=== PATIENT | male | born 1965 ===

== ENCOUNTER → 2025-03-06 16:00 | Outpatient (BNV) | payer MEDICARE, MEDICAID, SELFPAY | PROVIDERS: Visit Provider Internal Medicine | DX: G47.33 Obstructive sleep apnea (adult) (pediatric) (principal) | CPT/HCPCS: 95806 ==

== ENCOUNTER → 2025-03-06 19:59 | Outpatient (REF) | payer MEDICARE, MEDICAID, SELFPAY ==
--- OUTSIDE RECORDS SUMMARY | 2025-03-07 09:36 | XMS_ITS | Encounter Summary ---
Author Organization [facility] Address [address] [place] [address] Phone Care Team Providers Care Training Lead Name Role Phone Tracy Corrales NP Primary Care Provider [phone] Adriana Payton MD Primary Care Provider [phone] Adriana Payton MD Primary Care Provider + [phone] Encounter Details Date Type Department Care Team (Late st Contact Info) Description 10/17/2022 Procedure Pass Non-Invasive Cardiology [address] [place] [address] Social History Tobacco Use Types Packs/Day Years Used Date Smoking Tobacco: Never Smokeless Tobacco: Never Alcohol Use Standard Drinks/Week Comments Not Currently 0 (1 standard drink = 0.6 oz pur e alcohol) Education Answer Date Recorded Are you interested in more education? Not on sal[place] e 10/12/2022 Are you concerned about learning? Not on file 10/12/2022 No 10/12/2022 No 10/12/2022 Sex and Gender Information Value Date Recorded Sex Assigned at Not on file Legal Sex Male 6:15 PM EST Gender Identity Not on file Sexual Orientation Not on file documented as of this encounter Plan of Treatment Not on file documented as of this encounter Visit Diagnoses Not on filedocumented in this encounter Care Teams Training Lead Relationship Specialty Start Date End Date Tracy Corrales NP PCP - General Family Medicine 10/18/18 09/30/23 Adriana Payton MD [email or web address] PCP - General Family Medicine 10/01/23 05/14/24 Adriana Payton MD [address] [place] [address] [place] [address] [email or web address] PCP - General Family Medicine 05/15/24 documented as of this encounter Additional Source Comments The information contained in this document represents components of the legal health record. It is not the complete legal health record.[facility]
--- OUTSIDE RECORDS SUMMARY | 2025-03-07 09:36 | XMS_ITS | Encounter Summary ---
Author Organization [facility] Address [address] [place] [address] Phone Care Team Providers Care Eyewear Manufacturing Tech Name Role Phone Chely Crouch DPM Unavailable Unavailable Tracy Corrales NP Primary Care Provider [phone] Adriana Payton MD Primary Care Provider + [phone] Adriana Payton MD Primary Care Provider + [phone] Reason for Referral * Outpatient Procedure - Closed Specialty Diagnoses / Procedures Referred By Contac t Referred To Contact Diagnoses Abnormal electrocardiogram Procedures Adult Echo TTE Tracy Corrales NP Phone: tel: fax: Referral ID Status Reason Start Date Expiration Date Visits Re quested Visits Authorized [id number] Closed 10/18/2018 10/18/2019 1 1 Encounter Details Date Type Department Care Team (Latest Contact Info) Description 10/18/2018 Transcribe Orders Virtual Department [address] [place] [address] Tracy Corrales NP [address] [place], [place] [id number] Abnormal electrocardiogram (Primary Dx) Social History Tobacco Use Types Packs/Day Years Used Date Smoking Tobacco: Never Assessed Sex and Gender Information Value Date Recorded Sex Assigned at Not on file Legal Sex Male 6:15 PM EST Gender Identity Not on file Sexual Orientation Not on file documented as of this encounter Plan of Treatment Not on file documented as of this encounter Results * TTE COMPREHENSIVE (11/16/2018 1:27 PM EDT) Body Surface Area 2.2 m2 Weight 94 kg Systolic BP 141 mmHg Diastolic BP 71 mmHg Aortic Valve Peak Velocity 77.6 cm/s Aortic Valve Peak Gradient 2.00 mmHg Aortic Sinus Diameter 26 mm Ascending Aorta Diameter 31 mm Inferior Vena Cava Diameter 19 0.0 - 21 mm Interventricular Septum Thickness 11 mm Left Ventricle Internal Diameter End Diastole 37 42 - 58 mm Left Ventricle Internal Diameter End Systole 26 25 - 40 mm Left Ventricular Outflow Tract Diameter 20.0 mm LVOT VTI REST 125.00 mm Left Ventricular Outflow Tract Velocity 0.6 m/s Left Ventricular Outflow Tract Gradient at Rest 2.00 mmHg Left Ventricular Posterior Wall Thickness 9 mm Ejection Fraction 60 50 - 75 Percent Left Atrium Dimension Anterior-Posterior 19 15 - 40 mm Mitral Valve Deceleration Time 148.00 ms Mitral Valve A Wave Speed 57.2 cm/s Mitral Valve E Wave Speed 71.3 cm/s Right Ventricle Basal Diameter 27.20 25 - 41 mm Raw LV EF% 51 % Aortic Valve Sinus Index 1 12 20 - 32 mm Ascending Aorta Diameter 14 mm Aortic Sinus Index 12 mm Ascending Aorta Index 14 mm Height 183 m Anatomical Region Laterality Modality Heart Ultrasound Narrative 11/16/2018 2:54 PM EDT The study was technically difficult The left ventricular cavity size and wall thickness are normal. Left ventricular systolic function is normal. There are no segmental left ventricular wall motion abnormalities noted. The estimated ejection fraction is 60% Left ventricular diastolic function appears within normal limits for age. No significant valvular heart disease Unable to determine RVSP due to lack of TR velocity profile. No prior studies for comparison. Left Ventricle The left ventricular cavity size and wall thickness are normal. Left ventricular systolic function is normal. There are no segmental left ventricular wall motion abnormalities noted. The estimated ejection fraction is 60% (Normal 50-75%). The left ventricular ejection fraction was measured by visual estimate. Left ventricular diastolic function appears within normal limits for age. There is no evidence of left ventricular thrombus. Right Ventricle The right ventricular size is normal. No evidence of right ventricular hypertrophy. The right ventricular systolic function is normal. Left Atrium The left atrium is normal in size. The left atrial anterior-posterior dimension measures 19 mm (normal 15-40 mm). The pulmonary venous flow profiles are normal. Pulmonary vein connections were not well seen. Right Atrium The right atrium is normal in size. The IVC is normal in size (2.1cm or less). The IVC measures 19 mm (normal <=21 mm). The IVC demonstrates normal collapse with inspiration which is consistent with normal RA pressure. Mitral Valve The mitral valve appears normal. The E/A ratio is 1.2. The Med E' Dimitri is 10.3. cm/s and the Lat E' Dimitri is 6.7. There is no evidence of mitral stenosis. There is anterior mitral annular calcification. There is no significant mitral regurgitation detected by spectral and color Doppler. Tricuspid Valve The tricuspid valve appears normal. There is no evidence of tricuspid stenosis. Unable to determine RVSP due to lack of TR velocity profile. There is evidence of trace tricuspid regurgitation by color and spectral Doppler. Aortic Valve The aortic valve was not well visualized. The aortic valve appears normal. The morphology of the valve (tricuspid vs bicuspid) cannot be determined. There is no evidence of valvular aortic stenosis. The peak aortic valve gradient is 2 mmHg. There is no evidence of aortic regurgitation by color and spectral Doppler. The visualized portions of the thoracic aorta appear normal. Pulmonic Valve The pulmonary valve appears normal. There is no evidence of pulmonic stenosis. There is no evidence of pulmonary regurgitation by color and spectral Doppler. Pericardium There is no evidence of pericardial effusion. There no evidence of a pleural effusion. Interatrial Septum The IAS was not well visualized. Interventricular Septum The IVS was not well visualized. General Findings The study was technically difficult (4). Echo performed in pt's wheelchair 90 degree almanzar. suboptimal views due to pt body habits. Study quality explanation: body habitus and no apical window. Technique(s) used in the evaluation: Color flow Doppler and Spectral Doppler. The predominant rhythm during the study was sinus. Comparison Findings No prior studies for comparison. us Tracy Corrales NP CV ECHO ORDERABLES Final Result documented in this encounter Visit Diagnoses Diagnosis Abnormal electrocardiogram- Primary Nonspecific abnormal electrocardiogram (ECG) (EKG) Abnormal electrocardiogram Nonspecific abnormal electrocardiogram (ECG) (EKG) documented in this encounter Care Teams Eyewear Manufacturing Tech Relationship Specialty Start Date End Date Tracy Corrales, ORCHESTRATOR [address] [place] [address] PCP - General Family Medicine 10/18/18 09/30/23 Adriana Payton MD [address] [place] [address] [email or web address] PCP - General Family Medicine 10/01/23 05/14/24 Adriana Payton MD [address] [place] [address] [place] [phone] [email or web address] PCP - General Family Medicine 05/15/24 Chely [place] [address] Historical LMR Provider 03/25/1706/15/21 documented as of this encounter Additional Source Comments The information contained in this document represents components of the legal health record. It is not the complete legal health record.[facility]
--- OUTSIDE RECORDS SUMMARY | 2025-03-07 09:36 | XMS_ITS | Encounter Summary ---
Author Organization [facility] Address [address] [place] [address] Phone Care Team Providers Care Information Systems Architect Name Role Phone Chely Crouch DPM Unavailable Unavailable Tracy Corrales NP Primary Care Provider [phone] Adriana Payton MD Primary Care Provider [phone] Adriana Payton MD Primary Care Provider [phone] Encounter Details Date Type Department Care Team (Latest Contact Info) Description 02/20/2020 Transcribe Orders Virtual Department [address] [place] [id number] Alfred Zimmer MD [address] [place] [address], [place] [address] [email or web address] Urinary urgency (Primary Dx); Asperger's syndrome; Fascioscapulohumeral muscular dystrophy Social History Tobacco Use Types Packs/Day Years Used Date Smoking Tobacco: Never Smokeless Tobacco: Never Alcohol Use Standard Drinks/Week Comments Not Currently 0 (1 standard drink = 0.6 oz pur e alcohol) Sex and Gender Information Value Date Recorded Sex Assigned at Not on file Legal Sex Male 6:15 PM EST Gender Identity Not on file Sexual Orientation Not on file documented as of this encounter Plan of Treatment Not on file documented as of this encounter Results * US Kidneys and Bladder (03/02/2020 4:42 PM EDT) Anatomical Region Laterality Modality Abdomen, Kidney Ultrasound 03/02/2020 5:12 PM EDT Impressions 03/02/2020 5:12 PM EDT No hydronephrosis. Narrative 03/02/2020 5:12 PM EDT US KIDNEYS AND BLADDER TECHNIQUE: Ultrasound evaluation of the KIDNEYS AND BLADDER. Volumetric sweeps were obtained and reviewed. COMPARISON: None FINDINGS: RIGHT KIDNEY: The right kidney measures 9.3 cm. Parenchyma is within normal limits. No hydronephrosis. LEFT KIDNEY: The left kidney measures 10.5 cm. Parenchyma is within normal limits. No hydronephrosis. BLADDER: Unremarkable. Post void residual is 16% Procedure Note Jac Zabala MD, JONATHAN - 03/02/2020 US KIDNEYS AND BLADDER TECHNIQUE: Ultrasound evaluation of the KIDNEYS AND BLADDER. Volumetric sweeps wereobtained and reviewed. COMPARISON: None FINDINGS: RIGHT KIDNEY: The right kidney measures 9.3 cm. Parenchyma is withinnormal limits. No hydronephrosis. LEFT KIDNEY: The left kidney measures 10.5 cm. Parenchyma is withinnormal limits. No hydronephrosis. BLADDER: Unremarkable. Post void residual is 16% IMPRESSION: No hydronephrosis. 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 documented in this encounter Care Teams Information Systems Architect Relationship Specialty Start Date End Date Tracy Corrales NP [address] [place] [address] [place] [address] PCP - General Family Medicine 10/18/18 09/30/23 Adriana Payton MD [address] [place] [address] [email or web address] PCP - General Family Medicine 10/01/23 05/14/24 Adriana Payton MD [address] [place] [address] [place] [phone] [email or web address] PCP - General Family Medicine 05/15/24 Chely Crouch DPM [address] [place] [address] Historical LMR Provider 03/25/1706/15/21 documented as of this encounter Additional Source Comments The information contained in this document represents components of the legal health record. It is not the complete legal health record.[facility]
--- OUTSIDE RECORDS SUMMARY | 2025-03-07 09:37 | XMS_ITS | Data Portability ---
Author Organization [facility], Main Office Address 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 Name Role Phone STORMY FERNANDES Primary Care Provider [phone] [facility] OTHER Assessment Encounter Date Assessment Date Assessment LastModified by Organization Details LastModified Time 09/12/2024 09/12/2024 Spent 30 reviewing records, seeing pt, consulting with staff and documenting [place] Not available 09/12/2024 22:25:08 11/29/2024 11/29/2024 Spent 30 reviewing records, seeing pt, consulting with staff and documenting glord Not available 11/28/2024 22:13:58 Plan of Treatment Reminders Order Date Submit Date Provider Last Modified By Organization Details Last Modified Time Details Appointments None record ed. Lab None record ed. Referral None record ed. Procedures None record ed. Surgeries None record ed. Imaging None record ed. Medication Orders None record ed. Patient TargetsNo targets recorded. Patient InstructionsNo instructions recorded. Reason for Referral None Reported. Problems Name Problem SNOMED Code Status Onset Date Resolution Date Notes Provider Name and Address Organization Details Recorded Time Disorder of lung 68035144 Active 2023 Not Available [facility] 5 05:24:33 Oropharyngeal dysphagia 57353232 Active 2023 Not Available [facility] 5 05:24:34 Adult failure to thrive syndrome 624067337 Active 2023 Not Available [facility] 5 05:24:35 Muscle weakness 79089830 Active 2023 Not Available [facility] 5 05:24:35 Abnormal posture 81529941 Active 2023 Not Available [facility] 5 05:24:36 Snoring 36470094 Active 2023 Not Available [facility] 5 10:37:12 Cardiac arrhythmia 900146265 Active [address] [place] [address], [address], [place], [address] , [facility] 4 12:31:35 Dilated cardiomyopath y 886659395 Active [address], [address], [place], [address] , [facility] 4 12:31:50 Essential hypertension 32321692 Active [address], [address], [place], [address] , [facility] 4 12:31:56 Restrictive lung disease 61271077 Active [address], [address], [place], [address] , [facility] 4 12:32:05 Facioscapuloh umeral muscular dystrophy 200783148 Active [address], [address], [place], [address] , [facility] 4 12:32:23 Asperger's disorder 46392900 Active [address], [address], [place], [address] , [facility] 4 12:36:55 Foot-drop 2242048 Active [address], [address], [place], [address] , [facility] 4 12:37:04 Muscular dystrophy 76184535 Active [address], [address], [place], [address] , [facility] 4 12:40:52 Abnormal gait 93736060 Active 2023 Not Available [facility] 05:24:34 Finding related to attentiveness 946697995 Active 2023 Not Available [facility] 05:24:34 Problem Notes None recorded. Medical Equipment None Reported. Allergies Allergen ID Allergen Name Allergen Category Reaction Reaction Severity Criticality Documentation Date Start Date Code Code System Note Provider Name and Address Organization Details Recorded Time 07920 tree and shrub pollen environme nt,medica tion Not available Not available Not available 05/17/20242023 Not Available [facility] 05:24:37 97891 bee pollen environme nt,medica tion Not available Not available Not available 06/30/20242023 99229 7 RxNorm Not Available [facility] 5 05:24:37 Medications Name Sig Start Date Stop Date Status Note LastModified by Organization Details LastModified Time Colace 100 mg capsule Give 1 capsule by mouth one time a day for constipat ion 2024 active Not Available Not Available Not Avai lable acetaminoph en 325 mg tablet Give 2 tablet by mouth every 6 hours as needed for Pain Do not exceed 3 grams in 24 hours.Tot al 650 mg AND Give 2 tablet by mouth every 6 hours as needed for Elevated temp >101 Do not exceed 3 grams in 24 hours.Tot al 650 mg 2023 active Not Available Not Available Not Avai lable Tamiflu 75 mg capsule Give 1 capsule by mouth one time a day for prophylac tic for 7 Days Take with food if upset stomach occurs. 08/03 completed Not Available Not Available Not Available lisinopril 10 mg tablet Give 1 tablet by mouth one time a day for hypertens ion 2023 active Not Available Not Available Not Avai lable Laxative (sennosides ) 8.6 mg tablet Give 1 tablet by mouth every 24 hours as needed for Constipat ion health maintenan ce 2023 active Not Available Not Available Not Avai lable Mucinex 600 mg tablet, extended release Give 1 tablet by mouth two times a day for Congestio n for 7 Days 11/18 completed Not Available Not Available Not Available Allergy Relief (loratadine ) 10 mg tablet Give 1 tablet by mouth one time a day for Allergies 2024 active Not Available Not Available Not Avai lable sodium phosphates 19 gram-7 gram/197 mL enema Insert 1 unit rectally every 24 hours as needed for Constipat ion Use only if Bisacodyl Supposito ry is ineffecti ve 2023 active Not Available Not Available Not Avai lable lactulose 10 gram/15 mL (15 mL) oral solution Give 15 ml by mouth every 24 hours as needed for health maintenan ce 2023 active Not Available Not Available Not Avai lable Powderlax 17 gram oral powder packet Give 17 gram by mouth one time a day for Osmotic laxative Dilute in 6-8 ounces of fluid AND Give 16 gram by mouth every 24 hours as needed for constipat ion 2024 active Not Available Not Available Not Avai lable OneLAX Bisacodyl 10 mg rectal suppository Insert 1 supposito ry rectally every 24 hours as needed for constipat ion Use if Senna is Ineffecti ve 2023 active Not Available Not Available Not Avai lable Arexvy (PF) 120 mcg/0.5 mL IM suspension Inject 0.5 millilite r intramusc ularly one time a day for Immunizat ion 2024 active Not Available Not Available Not Avai lable Fluad Triv (65y up)(PF) 45 mcg (15 mcg x 3)/0.5 mL IM syringe Inject 0.5 millilite r intramusc ularly one time a day for Immunizat ion 06/22 completed Not Available Not Available Not Available Vitals Date Recorded Body height Body mass index (BMI) Body weight Heart rate Respiratory rate Body temperature Oxygen saturation Oxygen saturation in Arterial blood by Pulse oximetry Systolic And Diastolic Provider Name and Address Organization Details Last Updated DateTime 5 180.34 cm 25 kg/m2 63602.0 3 g 81 /min 18 /min 98.8 [degF] 97 % 97 % 115/77 mm[Hg] Bridgette Valencia MD [address] [facility], [address], [place], [address], [facility] 19:06:30 Date Recorded Body height Systolic And Diastolic Provider Name and Address Organization Details Last Updated DateTime 05/31/2024 180.34 cm 129/85 mm[Hg] CAROL SOTO [address] [facility], [address], [place], [address], [facility] 05/31/2024 10:09:21 Date Recorded Body height Body temperature Heart rate Systolic And Diastolic Provider Name and Address Organization Details Last Updated DateTime 06/07/2024 180.34 cm 97.8 [degF] 92 /min 128/78 mm[Hg] CAROL [facility] [address], [address], [place], [address] , [facility] 06/07/2024 10:25:47 Social History Question Answer Notes LastModified by Organizat ion Details LastModified Time Tobacco Smoking Status Never Smoker CAROL SOTO [address] [place] [address], [address], [place], [address], [facility] 05/17/2024 12:40:17 Do You Have An Advance Directive? No Information not available 05/19/2024 What Is Your Code Status? Full Code Information not available 05/19/2024 Where Do You Live? Apartment Information not available 05/19/2024 Legal Guardian? No Informati on not available 05/19/2024 Do You Have A Medical Power Of Institutional Asset Manager? No Information not available 05/19/2024 What Was The Date Of Your Most Recent Tobacco Screening? 05/19/2024 Information not available 05/19/2024 Do You Have An Out Of Hospital DNR? No Information not available 05/19/2024 What Is Your Relationship Status? Single Information not available 05/19/2024 Has Tobacco Cessation Counseling Been Provided? No Information not available 05/17/2024 Sex: Unknown Functional Status Question Answer Note LastModified by Organizat ion Details LastModified Time Do you use any illicit or recreational drugs? No Information not available 05/17/2024 Do you or have you ever used any other forms of tobacco or nicotine? No Information not available 05/17/2024 What is your level of alcohol consumption? None Information not available 05/17/2024 Mental Status None recorded. Family History Relationship Description Onset Age of this Age Resolved Age Notes LastModified by Organization Details LastModified Time Father No current problems or disability glord Not available 05/17 12:40:23 Mother No current problems or disability glord Not available 05/17 12:40:23 Notes:n/c Medical History No medical history recorded. Immunizations Vaccine Type Date Status Note Provider Nam e and Address Organization Details Recorded Time Tdap 10/25/2008 completed Arti Mckeon [facility] 05/17/2024 15:13:41 influenza, unspecified formulation 03/02/2024 completed Artidahiana Mckeon [facility] 05/17/2024 15:13:58 SARS-COV-2 (COVID-19) vaccine, UNSPECIFIED 10/10/2020 completed Arti Mike [facility] 05/17/2024 16:09:51 SARS-COV-2 (COVID-19) vaccine, UNSPECIFIED 11/01/2020 completed Arti Mike [facility] 05/17/2024 16:10:01 SARS-COV-2 (COVID-19) vaccine, UNSPECIFIED 09/05/2021 completed Arti Mike [facility] 05/17/2024 16:10:10 Past Encounters Encounter ID Performer Location Encounter Start Date Encounter Closed Date Diagnosis/Indication Diagnosis SNOMED-CT Code Diagnosis ICD10 Code Diagnosis IMO Codes Diagnosis Note [id number] CAROL [facility] on [address] [place] [address] 05/17/2024 12:28:57 05/18/2024 11:46:14 Muscular dystrophy 51420051 G71.00 with progressio n of diseasePT/ OT eval and treatfollo w up with neuro as scheduled Essential hypertension 92406470 I10 lisinopril 10 mg dailymonit or bps [id number] [facility] [address] [place] [address] 05/19/2024 20:04:05 05/25/2024 09:03:26 Essential hypertension 79733277 I10 BP in good control.Co ntinue lisinopril 10 mg qdMonitor BP and labs Facioscapu lohumeral muscular dystrophy 250075044 G71.02 Long standing dx, but with recent decline.Se es neuro, Dr. Mason yearly, last seen in 12/2023.Nee ds supportive care and increased services.N eeds PT/OT for strengthen ing, balance, safety and function.C ontinue fall precaution s.Monitor for safety. Restrictiv e lung disease 60234083 J98.[address] [place].No current sxs.Last visit in 09/2023.At that time VC on PFTs was 46% of expected.N ote states: Serene lyman moderate restrictiv e lung disease secondary to facioscapu lohumeral muscular dystrophy. He is currently asymptomat ic. Pulmonary function studies are of questionab le accuracy given poor seal around his mouthpiece and suspect a certain amount of leakage. His arterial blood gas demonstrat es very mild hypercapni a and mildly elevated serum bicarb. I believe that the best way of monitoring him at this point in time he has an annual basic metabolic panel for serum bicarb. If it rises to 30 or above, follow-up arterial blood gas measuremen t should be obtained. If you become significan tly hypercapni c with pCO2's over 52, considerat ion for nocturnal noninvasiv e ventilatio n should be made understand ing the great difficulti es he would have with the interface. Was supposed to have f/u 05/10, but was unable to keep that.Needs f/u scheduled. Monitor for sxs. Asperger's disorder 2356 0001 F84.5 Continue supportive care.Expla in things to pt in detail and encourage him to ask questions. Psych consult prn for emotional support. [id number] CAROL Perry at [facility] on [address] [place] [address] 05/20/2024 11:52:24 05/23/2024 12:08:06 Exposure to SARS-CoV-2 706738172 Z20.822 likely since its on unit, test negative todaysympt omatic treatmento ffer apap nowmonitor for change [id number] KAJAL GAUTHIER at [facility] on [address] [place] [address] [place] [address] 05/26/2024 15:33:27 05/30/2024 13:55:58 SARS-CoV-2 912173231 U07.1 he tells me that he test positive on 05/23, his only sx are cough and rhinitisre ports taking cough medication that helps sxdenies any other sxcontinue supportive therapy Essential hypertension 70686030 I10 stable on lisinopril sbp mainly under 120scontin ue to monitor [id number] CAROL Perry at [facility] on [address] [place] [address] [place] [address] 05/31/2024 10:08:44 06/06/2024 13:55:42 SARS-CoV-2 643985934 U07.1 will retest todaycan likely come off [id number] CAROL Perry at [facility] on [address] [place] [address], [place] [address] 06/07/2024 10:25:20 06/09/2024 14:14:07 SARS-CoV-2 443624955 U07.1 resolved Essential hypertension 98564632 I10 stable on lisinopril sbp mainly under 120scontin ue to monitor [id number] CAROL Perry at [facility] on [address] [place] [address] [place] [address] 06/29/2024 10:47:30 06/30/2024 15:34:35 Essential hypertension 70961958 I10 stable on lisinopril sbp mainly under 120scontin ue to monitor Muscular dystrophy 32455 009 G71.00 with progressio n of disease, now here [facility] [id number] Bridgette Valencia MD Vicky at [facility] on [address] [place] [address] [place] [address] 09/12/2024 18:57:17 09/15/2024 08:20:41 Facioscapulohumeral muscular dystrophy 339895461 G71.02 Continues with slow decline.Se leidy neuro, Dr. Mason yearly, last seen in 12/2023.Con tinues to need supportive care.Milton nue fall precaution s.Monitor for safety.[facility]. Essential hypertension 82658957 I10 BP continues to be in good control.Co ntinue lisinopril 10 mg qdMonitor BP and labs Restrictiv e lung disease 93053010 J98.[address] [place].No current sxs.Last visit in 09/2023.Nee ds f/u scheduled with Dr. Leonard ), order written.Kofi clarke for sxs. Asperger's disorder 2356 0001 F84.5 Continue supportive care.Expla in things to pt in detail and encourage him to ask questions. Psych consult prn. Chronic constipation 236 812010 K59.09 133626 Continue bowel meds as ordered.Kofi clarke bowel function. [id number] CAROL Braranna at [facility] on [address] [place] [address] 11/29/2024 12:49:24 12/01/2024 20:43:15 Facioscapulohumeral muscular dystrophy 995892025 G71.02 Continues with slow decline.Se leidy neuro, Dr. Mason yearly, last seen in 12/2023.Con tinues to need supportive care.Milton nue fall precaution s.Monitor for safety.Koby ns [facility]. Essential hypertension 21719512 I10 BP continues to be in good control 114/70Cont inue lisinopril 10 mg qdMonitor BP and labs Restrictiv e lung disease 48738683 J98.[address] [place].res p status stable Asperger's disorder 2356 0001 F84.5 Continue supportive care. Chronic constipation 236 048329 K59.09 955661 Continue bowel meds as ordered.Kofi clarke bowel function. Health Concerns Section Related Observation LastModified by Organization Detai ls LastModified Time None Recorded Concern Status LastModified by Organization Details LastModified Time None Recorded Advance Directives Directive N: Payers Insurance Date Sequence Insurance Name Policy Number Policy Kim Covered Member ID Kim Member ID Guarantor Name 11/29/2024 1 [place] [employer] Juan Diego P He [id number] Juan Diego He 11/29/2024 2 [place] [facility] Diego He [id number] Juan Diego He Notes Date Note Type Note Provider Name and Address Organization Details Recorded Time 4 text/html This is a 58 yo man seen for acute rounding visit, who is here for rehab due to gradual decline in function due to muscular dystrophy. His course was complicated by testing positive for covid 19 on 05/23. He tells me he is hoping he can come off precautions soon so he can go out to the hallway. Per PT: The patient has demonstrated limited progress towards functional goals. PTfocus to transition to compensation and to attain an appropriate WC for the next level of care . His PMH includes HTN, facioscapulohumeral MD, dilated cardiomyopathy, and Asperger's syndrome. CAROL [address], [facility] [address], [place], [address], [employer] 05/31/2024 10:19:15 4 text/html This is a 58 yo man seen for acute rounding visit, who is here for rehab due to gradual decline in function due to muscular dystrophy. He is now covid recovered, no new concerns medically. Per PT: Continued discrepancy between patient functional levels and the patientsinsight to his functional abilities . Discussion about the MFP potential. Patient is willing to remain at the facility and transition to the 2nd floor, PT to DC end of this week.Patient propelled 10 feet following the meeting and reported fatigue in bilateral UE and requested assistance back to the room. Patient was transported back to the room. He demonstrated capacity to reposition the chair to side of bed and advocated for himself. His PMH includes HTN, facioscapulohbitaal MD, dilated cardiomyopathy, and Asperger's syndrome. CAROL [address], [address], [place], [address], [facility] [facility] 06/07/2024 11:56:22 5 text/html This is a 58 yo man seen for 30 day routine rounding visit. Patient who is here for now LTC due to decline from muscular dystrophy. Patient appears to be at his baseline, no concerning nursing notes in the last 30 days. He is resting in bed at this visit, His PMH includes HTN, facioscapulohbitaal MD, dilated cardiomyopathy, and Asperger's syndrome. CAROL [address], [address], [place], [address], [facility] [email or web address] 06/29/2024 10:48:00 5 text/html This is a 58 yo man who I am seeing today for a routine MD 60/90 day reeval rounding visit.He was admitted here on 05/16/24 because of gradual decline in function due to muscular dystrophy and inability to be cared for in the community. 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 His PMH includes HTN, facioscapulohumeral MD, dilated cardiomyopathy, and Asperger's syndrome. Bridgette Valencia MD [address] [facility], [address], [place], [address], [facility] [employer] 09/12/2024 22:25:26 5 text/html The patient is a 59-year-old male with a history of HTN, facioscapulohumeral muscular dystrophy, dilated cardiomyopathy, and Asperger's syndrome, seen today for a routine rounding visit. The patient is in long-term care due to a gradual decline in function from muscular dystrophy and an inability to care for himself in the community. He has had no acute medical visits in over 6 months and is not currently on skilled therapy. There are no nursing notes of concern. According to activities staff, he is alert and oriented, able to make his needs known, and participates in activities such as bingo, card games, and special events, including men's group and [facility]. He propels himself in his wheelchair independently to the main dining room for meals and off-unit for activities. Although he tends to keep to himself, he does socialize with others and continues to hope to return to the community one day.Earlier this month, there was an episode of verbal aggression towards other patients who entered his room. He came out of his room verbally attacking other patients who were not in his room at that time. A meeting with psychotherapist social worker was held, and they are working with the online community manager to create a plan to minimize uninvited people coming into his room. Recent labs from 11/08 showed sodium 137 mmol/L, potassium 4.5 mmol/L, BUN 18 mg/dL, creatinine 0.20 mg/dL, WBC 9.73 x10^3/uL, hemoglobin 11.9 g/dL, and hematocrit 37.6%.Labs: CAROL SOTO [address] [facility], [address], [place], [address], [facility] 11/29/2024 12:49:56
--- OUTSIDE RECORDS SUMMARY | 2025-03-07 09:37 | XMS_ITS | Clinical Summary ---
Author Organization [facility] Address [address] [address] Phone Care Team Providers Care Building Code Administrator Name Role Phone Adriana Payton MD Primary Care Provider Allergies Active Allergy Reactions Criticality Noted Date Comments Tree And Shrub Pollen 03/26/2023 Runny nose Medications lisinopril (PRINIVIL,ZESTRI L) 10 MG tablet Take 10 mg by mouth daily. 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 He is currently asymptomatic. Pulmonary function studies are of questionable accuracy given poor seal around his mouthpiece and suspect a certain amount of leakage. His arterial blood gas demonstrates very mild hypercapnia and mildly elevated serum bicarb. I believe that the best way of monitoring him at this point in time he has an annual basic metabolic panel for serum bicarb. If it rises to 30 or above, follow-up arterial blood gas measurement should be obtained. If you become significantly hypercapnic with pCO2's over 52, consideration for nocturnal noninvasive ventilation should be made understanding the great difficulties he would have with the interface. He knows to contact me with any respiratory issues. Otherwise I will see him in follow-up via virtual visit in 1 year for with results of a BMP preceding the visit. 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 While some findings may be a result of the patient's examiners wheelchair, I am concerned that it may represent significant respiratory muscle compromise as a part of his disease entity. I explained that the first step would be to determine whether he has daytime hypercapnia by an arterial blood gas. If elevated, you will be approved for noninvasive ventilation and could start him on treatment. If daytime testing is normal however, he would likely need a formal sleep study possibly and ideally an in lab study. Both an in lab study as well as treatment is complicated by the fact of his muscular dystrophy and that he has some limited fine motor use use of his upper extremities, making placement of facemask and headgear challenging. We will start with an ABG and I have placed a consult to my colleague, Dr. Leonard to assist in this complicated case. I will contact Juan Diego following his ABG to review next steps. Facioscapulohumeral muscular dystrophy Assessment & Plan (03/26/2023 3:16 PM EDT): FSH muscular dystrophy with significant proximal muscle weakness with no signs or symptoms suggestive of respiratory muscle involvement. We will respiratory muscle dysfunction is uncommon in FSH muscular dystrophy, can occur particularly in patients with significant proximal muscle weakness. Fortunately he has no symptoms suggestive of either sleep disorder breathing or respiratory muscle impairment. Nonetheless, initial set of pulmonary function studies is recommended. Based on those findings, would continue consider whether further monitoring such as annual study testing should be considered. Assessment & Plan (07/01/2022 3:13 PM EST): Patient has history of facioscapulohumeral muscular dystrophy patient was referred for cardiac screening. He does not have any symptoms of heart failure or arrhythmias. At present we reviewed his electrocardiogram and we ordered an echocardiogram to rule out cardiomyopathy and 24-hour Holter to rule out atrial fibrillation flutter and other rhythm arrhythmias and was agreeable to above plan Arrhythmia 07/01/2022 Dilated cardiomyopathy 07/01/2022 Benign essential hypertension 07/01/2022 Assessment & Plan (07/01/2022 3:14 PM EST): His blood pressure is 1 30-80 he is on lisinopril and lisinopril he should continue his medication and get his renal profile and time to time checked during the night echocardiogram and will see for LVH Social History Tobacco Use Types Packs/Day Years Used Date Smoking Tobacco: Never Smokeless Tobacco: Never Tobacco Cessation:Counseling Given: Not Answered Alcohol Use Standard Drinks/Week Comments Not Currently 0 (1 standard drink = 0.6 oz pur e alcohol) Education Answer Date Recorded Are you interested in more education? Not on [place] e 10/12/2022 Are you concerned about learning? Not on file 10/12/2022 No 10/12/2022 No 10/12/2022 Digital Access Answer Date Recorded No 11/02/2022 No 11/02/2022 Reliable internet access at home? Not on file 11/02/2022 Device with a working camera? Not on file Intimate Partner Violence Answer Date R ecorded Are you denied basic needs s uch as food, clothing, or medical care? No 05/15/2024 In the past 12 months have y ou been in a relationship with a person who hurts, threatens, or tries to control you? No 05/15/2024 Are you denied basic needs s uch as food, clothing, or medical care? No 05/15/2024 In the past 12 months have y ou been in a relationship with a person who hurts, threatens, or tries to control you? No 05/15/2024 Sex and Gender Information Value Date Recorded Sex Assigned at Not on file Legal Sex Male 6:15 PM EST Gender Identity Not on file Sexual Orientation Not on file Last Filed Vital Signs Vital Sign Reading Time Taken Comments Blood Pressure 114/70 10/18/2024 12:00 PM EDT Pulse 72 10/18/2024 12:00 PM EDT Temperature 36.4 C (97.5 F) 10/18/2024 12:00 PM EDT Respiratory Rate 18 05/16/2024 1:45 PM EST Oxygen Saturation 99% 10/18/2024 12: 00 PM EDT Inhaled Oxygen Concentration - - Weight 86.2 kg (190 lb) 10/18/2024 12:0 0 PM EDT reported by pt Height 182.9 cm (6') 05/16/2024 7:57 AM EST Body Mass Index 25.77 05/16/2024 7:57 AM EST Plan of Treatment Health Maintenance Due Date Last Done Comments LIPID PANEL 1963 DEPRESSION SCREENING 1975 HEPATITIS C SCREENING 11/19/1981 HIV ONE-TIME SCREENING (18-65 YEARS) 11/19/1981 PNEUMOCOCCAL VACCINES (50+ years) (1 of 2 - PCV) 11/19/1982 COLOGUARD 11/19/2008 COLONOSCOPY 11/19/2008 COLORECTAL CANCER SCREENING 11/19/2008 FIT TEST 11/19/2008 FOBT 11/19/2008 SIGMOIDOSCOPY 11/19/2008 VIRTUAL COLONOSCOPY 11/19/2008 ZOSTER VACCINES (1 of 2) 11/19/2013 Adult Td,Tdap Booster 10/25/2018 10/25/2008 RSV VACCINE (1 - Risk 60-74 years 1-dose series) 2023 INFLUENZA VACCINE (#1) 2025 03/02/2024 COVID-19 VACCINE ( - 2024- season) 2025 09/05/2021, 11/01/2020, 10/10/2020 BLOOD PRESSURE 04/20/2025 10/18/2024 CREATININE LEVEL 11/08/2025 11/08/2024, , 05/30/2024, Additional history exists POTASSIUM LEVEL 11/08/2025 11/08/2024, 05/10, 05/30/2024, Additional history exists SCREENING FOR DIABETES 11/09/2027 11/08/2024 SMOKING STATUS SCREENING (Once After 26 Yrs) Completed 10/18/2024 HEPATITIS A VACCINES Aged Out No long er eligible based on patient's age to complete this topic HIB VACCINES Aged Out No longer eligi ble based on patient's age to complete this topic MENINGOCOCCAL VACCINES (ACWY) Aged Out No longer eligible based on patient's age to complete this topic MENINGOCOCCAL VACCINES (B) Aged Out N o longer eligible based on patient's age to complete this topic Medical Devices Not on file Procedures Procedure Name Priority Date/Time Associated Diagnosis Comments BASIC METABOLIC PANEL Routine 11/08/2024 5:00 AM EDT Essential hypertension, malignant Muscle weakness (generalized) from Last 3 Months or Most Recently Relevant to Health Maintenance Results * (ABNORMAL) Basic metabolic panel (11/08/2024 5:00 AM EDT) SODIUM 137 133 - 146 mmol/L [facility] CHLORIDE 100 96 - 108 mmol/L [facility] POTASSIUM 4.5 3.3 - 5.1 mmol/L [facility] CO2 27 21 - 35 mmol/L [facility] BUN 18 6 - 19 mg/dL [facility] CREATININE 0.20(L) 0.5 - 1.5 mg/dL [facility] GLUCOSE 82 70 - 99 mg/dL [facility] CALCIUM 8.8 8.4 - 10.3 mg/dL [facility] EGFR >120 >59 mL/min/1.7 3m2 [facility] Comment:Estimated glomerular filtration rate calculated using the CKD-EPI refit equation. ANION GAP 15 10 - 20 mmol/L [facility] Blood 11/08/2024 5:00 AM EDT 11/08/2024 7:32 AM EDT us Julien Vazquez MD LAB BLOOD ORDERABLES Final Resul t [facility] [address] [place] [address] from Last 3 Months or Most Recently Relevant to Health Maintenance Insurance MEDICARE PART A & B [facility] SAFET[facility] NET PARTIAL MEDICARE [facility] A & B [place] SAF[facility] NET PARTIAL MEDICARE PART A & [facility] NET PARTIAL MEDICARE PART A & [facility] & [facility] NET PARTIAL MEDICARE PART A & [facility] PARTIAL MEDICARE PART A & B Member Subscriber Plan / Payer (Ef fective 1999-Present) Name:He Juan Diego P Member ID:[id number] Relation to Subscriber:Self Name:Cosme Cutleric P Subscriber ID:[id number] Payer ID:[id number] Group ID:Not on file Type:Medicare [facility] [employer] [facility].[address] [address] [facility] MEDIC[facility] PART A & [facility] NET PARTIAL Care Teams Building Code Administrator Relationship Specialty Start Date End Date Adriana Payton MD [address] [place] [address] [place] [address] [email or web address] PCP - General Family Medicine 05/15/24 Additional Source Comments The information contained in this document represents components of the legal health record. It is not the complete legal health record.[facility]
--- OUTSIDE RECORDS SUMMARY | 2025-03-07 09:37 | XMS_ITS | Encounter Summary ---
Author Organization [facility] Address [address] [place] [phone] Phone Care Team Providers Care Creative Guru Name Role Phone Tracy Corrales NP Primary Care Provider [phone] Adriana Payton MD Primary Care Provider + [phone] Adriana Payton MD Primary Care Provider + [phone] Encounter Details Date Type Department Care Team (Late st Contact Info) Description 07/01/2022 Procedure Pass Echo Lab [place] [place] [address] Social History Tobacco Use Types Packs/Day Years [...] on filedocumented in this encounter Care Teams Creative Guru Relationship Specialty Start Date End Date Tracy Corrales NP PCP - General Family Medicine 10/18/18 09/30/23 Adriana Payton MD PCP - General Family Medicine 10/01/23 05/14/24 Adriana Payton MD [address] [place] [address] [place] [phone] [email or web address] PCP - General Family Medicine 05/15/24 documented as of this encounter Additional Source Comments The information contained in this document represents components of the legal health record. It is not the complete legal health record.[facility]
--- OUTSIDE RECORDS SUMMARY | 2025-03-07 09:37 | XMS_ITS | Encounter Summary ---
Author Organization [facility] Address [address] [place] [address] [place] [phone] Phone Care Team Providers Care Marshmallow Maker Name Role Phone Adriana Payton MD Primary Care Provider [phone] Adriana Payton MD Primary Care Provider + [phone] Reason for Visit * Reason Comments Med Change Request Encounter Details Date Type Department Care Team ([facility] st Contact Info) Description 10/02/2023 Refill [facility] [address] [place] [address] Lester Garay MD [address] [place], [place] [id number] [email or web address] Med Change Request Social History Tobacco Use Types Packs/Day Years [...] with a working camera? Not on file Sex and Gender Information Value Date Recorded Sex Assigned at Not on file Legal Sex Male 6:15 PM EST Gender Identity Not on file Sexual Orientation Not on file documented as of this encounter Plan of Treatment Not on file documented as of this encounter Visit Diagnoses Not on filedocumented in this encounter Care Teams Marshmallow Maker Relationship Specialty Start Date End Date Adriana Payton MD [email or web address] PCP - General Family Medicine 10/01/23 05/14/24 Adriana Payton MD [address] [place] [address] [place] [phone] [email or web address] PCP - General Family Medicine 05/15/24 documented as of this encounter Additional Source Comments The information contained in this document represents components of the legal health record. It is not the complete legal health record.[facility]
== END ==
LOC: HO.SL 19:59
PROVIDERS: Visit Provider Nurse Practitioner
DX: Z00.00 Encounter for general adult medical examination without abnormal findings (principal); G47.33 Obstructive sleep apnea (adult) (pediatric)
CPT/HCPCS: 95806